=== PATIENT | male | born 1975 | race Caucasian/White ===

== ENCOUNTER 2020-07-22 09:27 | Emergency (ER) | payer OTHER ==
[~2020-07-22] VITALS: Ht 180.3 cm; Wt 94.9 kg
[2020-07-22 09:28] VITALS: BP 140/98
--- NOTE | 2020-07-22 10:25 | REP ---
INDICATION: right testicle pain. COMPARISON: None. TECHNIQUE: Standard scrotal sonography with grayscale imaging, color and Doppler techniques used. FINDINGS: Right testis is 3.8 x 2.2 x 2.8 cm in the left is 4.3 x 2 x 2.6 cm. Both testes are homogeneous and without mass, cyst, calcification or asymmetry in their echogenicity. Color imaging shows flow to both. Doppler tracing shows resistive index 0.56 on the right and 0.52 on the left, normal. No evidence for torsion. No evidence of a hydrocele or varicocele. The right epididymal head has a CC diameter of 8.7 mm on the left 10.4 mm. There are multiple left epididymal head cysts with the largest measuring 5.4 x 3.3 x 3 mm. IMPRESSION: Multiple epididymal head cysts on the left with the largest 5.4 x 3.3 mm. Symmetric testes for size, echogenicity, blood flow and Doppler tracing. No mass or abnormal calcification. No varicocele or hydrocele. Nothing acute. <Electronically signed by Bob Rainey > 07/22/20 1020
--- NOTE | 2020-07-23 08:36 | ED PDOC ---
Post-Departure Follow-Up kati fisher faxed formal report of scrotal us for fu David Tanner MD Jul 23, 2020 08:36
== END 2020-07-22 10:52 | disposition home or self-care (01) ==
LOC: M ED 09:27
DX: N50.3 Cyst of epididymis (principal); F17.220 Nicotine dependence, chewing tobacco, uncomplicated; Z98.52 Vasectomy status